=== PATIENT | female | born 1970 | race Caucasian/White ===

== ENCOUNTER 2017-08-27 06:06 | Day surgery (SDC) | payer OTHER ==
[2017-08-27] MEDS ORDERED: SOD CHLORIDE 0.9% 1,000 ML IV (07:00)
[2017-08-27] MEDS ORDERED: CEFAZOLIN 2 GM/50 ML (PMX) 50 ML IVPB (07:00)
[2017-08-27] MEDS ORDERED: ROCURONIUM 50 MG INJ (07:07)
[2017-08-27] MEDS ORDERED: CEFAZOLIN 1 GM INJ (07:07)
[2017-08-27] MEDS ORDERED: LIDOCAINE 2% (SDV) 5 ML INJ (07:07)
[2017-08-27] MEDS ORDERED: PROPOFOL 20 ML ×2 (07:07→08:54)
[2017-08-27] MEDS ORDERED: FENTAnyl 50 MCG/ML VIAL (07:09)
[2017-08-27] MEDS ORDERED: DEXAMETHASONE 4 MG/ML 1 ML INJ (07:09)
[2017-08-27] MEDS ORDERED: ONDANSETRON 4 MG INJ (07:09)
[2017-08-27] MEDS ORDERED: KETOROLAC 30 MG INJ (07:09)
[2017-08-27] MEDS: BUPIVACAINE 0.5%/EPI (SDV) 10 ML INJ INJ (08:00)
[2017-08-27] MEDS ORDERED: SUGAMMADEX SODIUM 200 MG/2 ML VIAL IV (09:03)
[2017-08-27] MEDS ORDERED: ONDANSETRON 4 MG INJ IV (09:30)
[2017-08-27] MEDS ORDERED: morphine 2 MG INJ IV (09:30)
[2017-08-27] MEDS ORDERED: HYDROCODONE/APAP (5/325) TAB PO (09:30)
[2017-08-27] MEDS ORDERED: IBUPROFEN 600 MG TAB PO (09:30)
[2017-08-27] MEDS: FENTAnyl 50 MCG/ML VIAL IV ×2 (10:00→10:14)
[2017-08-27] MEDS: ONDANSETRON 4 MG INJ IV (10:00)
[2017-08-27] MEDS ORDERED: HYDROmorphONE (0.2 MG/ML) 10ML SYG IV ×2 (10:00)
[2017-08-27] MEDS: HYDROCODONE/APAP (5/325) TAB PO (10:35)
== END 2017-08-27 11:12 | disposition home or self-care (01) ==
LOC: SDS 06:06
DX: K80.10 Calculus of gallbladder with chronic cholecystitis without obstruction (principal)
CPT/HCPCS: 47562; 88304